=== PATIENT | male | born 1950 | race Two or more races ===

== ENCOUNTER 2020-10-25 10:00 | Emergency (ER) | payer OTHER ==
[~2020-10-25] VITALS: Ht 167.6 cm; Wt 68.0 kg
[~2020-10-25 10:00] MED LIST: LEVSIN/SL0.125 MG SL; PEPCID40 MG PO
[2020-10-25] MEDS ORDERED: TOPROL XL25 M1 (10:20)
[2020-10-25] MEDS ORDERED: ZETIA10 MG (10:22)
[2020-10-25] MEDS ORDERED: ADULT LOW DOSE81 M1 (10:22)
== END 2020-10-25 16:09 | disposition home or self-care (01) ==
LOC: ER 10:00
DX: I87.2 Venous insufficiency (chronic) (peripheral) (principal); M79.604 Pain in right leg

== ENCOUNTER 2025-06-12 09:07 | Outpatient (CLI) | payer OTHER ==
[~2025-06-12 09:07] MED LIST changes: +ADULT LOW DOSE81 M1; +TOPROL XL25 M1; +ZETIA10 MG
== END 2025-06-12 09:22 | disposition home or self-care (01) ==
LOC: SONOGRAMA 09:07
PROVIDERS: ATTEND Internal Medicine Nephrology
DX: Q27.1 Congenital renal artery stenosis (principal); N28.1 Cyst of kidney, acquired